=== PATIENT | female | born 1965 | race Two or more races ===

== ENCOUNTER 2018-07-01 17:19 | Emergency (ER) | payer MEDICAID ==
[~2018-07-01] VITALS: Ht 149.9 cm; Wt 54.4 kg
[2018-07-01 17:30] VITALS: BP_SYST 127
[2018-07-01] MEDS ORDERED: DIPHENHYDRAMINE INJ 50 MG/ML VIAL IVP ONE (18:00)
[2018-07-01] MEDS ORDERED: NACL 0.9% 1,000 ML IV ONE (18:00)
[2018-07-01] MEDS ORDERED: chlorproMAZINE HCL 50 MG/ 2 ML AMP IV ONE (18:00)
[2018-07-01 20:11] VITALS: BP_SYST 127
== END 2018-07-01 20:10 | disposition home or self-care (01) ==
LOC: SED 17:19
DX: R51 Headache (principal); R03.0 Elevated blood-pressure reading, without diagnosis of hypertension
CPT/HCPCS: 96374; 96375; 99283; J1200; J3230; J7030

== ENCOUNTER 2023-11-17 12:41 | Emergency (ER) | payer MEDICAID ==
[~2023-11-17] VITALS: Ht 149.9 cm; Wt 59.0 kg
[2023-11-17 12:54] VITALS: BP_SYST 128; PULSE 87; RESP 16; TEMP 98.1; O2SAT 97
[2023-11-17] MEDS ORDERED: METH-776 PO (13:02)
[2023-11-17] MEDS ORDERED: DICL50TA9 PO (13:02)
[2023-11-17 13:13] VITALS: BP_SYST 128; PULSE 87; RESP 16; TEMP 98.1; O2SAT 97
== END 2023-11-17 14:47 | disposition home or self-care (01) ==
LOC: SED 12:41
DX: M54.50 Low back pain, unspecified (principal); J40 Bronchitis, not specified as acute or chronic; R05.9 Cough, unspecified
CPT/HCPCS: 99283